=== PATIENT | female | born 1965 | race African-American/Black ===

== ENCOUNTER 2018-07-25 15:18 | Inpatient (IN) | payer MEDICARE, MEDICAID ==
[~2018-07-25] VITALS: Ht 160 cm; Wt 75.7 kg
[2018-07-25] MEDS ORDERED: MAGNESIUM HYDROXIDE 30 ML UDC PO PRN (15:30)
[2018-07-25] MEDS ORDERED: ZOLPIDEM TARTRATE 5 MG TABLET PO PRN (15:30)
[2018-07-25] MEDS ORDERED: MAG HYDROX/AL HYDROX/SIMETH 30 ML UDC PO PRN (15:30)
[2018-07-25] MEDS ORDERED: ACETAMINOPHEN 325 MG TABLET PO PRN (15:30)
[2018-07-25 15:38] VITALS: BP 141/64
[2018-07-25] MEDS ORDERED: ATOR10TA PO (15:44)
[2018-07-25] MEDS ORDERED: DIVA-76 PO (15:44)
[2018-07-25] MEDS ORDERED: LITH150C PO (15:44)
[2018-07-25] MEDS ORDERED: FLUP25VI4 IM (15:44)
[2018-07-25] MEDS ORDERED: BENZ2TAB7 PO (15:44)
[2018-07-25 16:00] VITALS: BP 141/64
--- NOTE | 2018-07-25 16:35 | NUR ---
Admitted a 53 years old female on 5150 for GD. Per hold, pt. called 911, screaming about someone trying to kill her. Brothers reported that pt. is non compliant on meds and unable to provide a viable self care plan. Pt. arrived in the unit via ambulance and transported via a gurney. V/S taken, contraband done, pt. refused to sign the admission papers and refused for skin assessment, pt. is partially cooperative and feels sleepy. Pt. came from [facility], alert/ oriented x3, ambulatory and with poor hygiene. Dr. Spivey was notified by the charge for the admission and logistics system engineer Josesito North (BOSTON CUTTER) made aware of the admission and told to reconcile meds. Will continue to monitor for safety. Addendum: 07/26/18 at 0758 by YFN APODACA RN PT. REFUSED FOR MRSA SWAB.
[2018-07-25 20:00] VITALS: BP 145/57
--- NOTE | 2018-07-26 01:25 | NUR ---
GPS/RN PATIENT IS SLEEPING AT THIS TIME, CALM AND COMFORTABLE, NO SIGNS OF DISTRESS NOTED, WILL CONTINUE TO MONITOR.
--- NOTE | 2018-07-26 06:10 | NUR ---
GPS/RN PATIENT IS AWAKE AT THIS TIME, CALM AND COMFORTABLE, NO DISTRESS NOTED, ALL NEEDS ATTENDED AT THIS TIME, WILL CONTINUE TO MONITOR.
[2018-07-26 08:00] VITALS: BP 118/74
--- NOTE | 2018-07-26 09:30 | NUR ---
SW contacted pts brother Win [phone] and left voicemail for call back.
[2018-07-26 09:32] LABS: ALBUMIN 2.9 g/dL (3.4-5.0); BILIRUBIN,TOTAL 0.4 mg/dL (0.2-1.0); CALCIUM, SERUM 8.6 mg/dL (8.5-10.1); CREATININE 0.9 mg/dL (0.6-1.3); POTASSIUM 3.9 mmol/L (3.5-5.1); TOTAL PROTEIN, SERUM 7.1 g/dL (6.4-8.2)
--- NOTE | 2018-07-26 10:05 | NUR ---
SW contacted pts son Unruly [phone] who stated, "Let me save you some time, I cannot help her, I have a restraining order against her. She's been to like 200 hospitals. Please don;t call me again." Son also stated that he did not know if pt was homeless.
--- NOTE | 2018-07-26 11:19 | NUR ---
INITIAL DISCHARGE PLAN: Patient has no family support and is homeless. Pt will need SNF placement. SW will help form a safe and proper discharge in collaboration with MD.
[2018-07-26] MEDS ORDERED: DEXTROSE 50%-WATER 50 ML DISP.SYRIN IV PRN (12:30)
--- NOTE | 2018-07-26 12:54 | NUR ---
SW received a call from pts brothkelly Walden [phone] stating pt needs locked SNF placement. SW informed him that once pt is stable she will refer her to a locked SNF. Brother agreed.
[2018-07-26] MEDS: DIVALPROEX SODIUM 125 MG CAP.SPRINK PO SCH ×2 (13:02→21:53)
[2018-07-26] MEDS: BENZTROPINE MESYLATE (1 MG) 1 MG TABLET PO SCH ×2 (13:02→17:16)
[2018-07-26] MEDS: risperiDONE-M 0.5 MG TAB.RAPDIS PO SCH ×2 (13:02→17:16)
[2018-07-26 16:00] VITALS: BP 113/67
[2018-07-26] MEDS: LITHIUM CARBONATE (300 MG CAP) 300 MG CAPSULE PO SCH (17:16)
[2018-07-26] MEDS: INSULIN REGULAR, HUMAN 100 UNIT/ML 3 ML VIAL SQ PRN ×2 (17:36→21:54)
[2018-07-26] MEDS: ATORVASTATIN 10 MG TABLET PO SCH (19:21)
[2018-07-26] MEDS: BLOOD SUGAR DIAGNOSTIC 1 EACH STRIP IN SCH ×2 (19:22→21:53)
--- NOTE | 2018-07-26 19:40 | NUR ---
initial rn notes: received pt in the room, sleeping, arouses to tactile stimuli, appears calm and comfortable. respiration even and unlabored. pt denies any pain or discomfort. pt a/o x2, ambulatory, well groomed, med compliant, with bathroom privileges. denies any si/hi. safety precautions for fall initiated, side rails up for safety, bed brakes engaged, will continue to monitor pt [id number] for safety and any changes in behavior
[2018-07-26 20:00] VITALS: BP 108/71
--- NOTE | 2018-07-26 22:00 | NUR ---
rn notes: skin assessment performed, no skin issues noted at this time, pt currently eating snack tuna sandwich and juice.
[2018-07-27] MEDS: BLOOD SUGAR DIAGNOSTIC 1 EACH STRIP IN SCH ×4 (07:30→21:08)
[2018-07-27 08:00] VITALS: BP 116/79
[2018-07-27] MEDS: DIVALPROEX SODIUM 125 MG CAP.SPRINK PO SCH ×3 (08:54→21:08)
[2018-07-27] MEDS: risperiDONE-M 0.5 MG TAB.RAPDIS PO SCH ×4 (08:54→16:43)
[2018-07-27] MEDS: BENZTROPINE MESYLATE (1 MG) 1 MG TABLET PO SCH ×4 (08:54→16:43)
[2018-07-27] MEDS: LITHIUM CARBONATE (300 MG CAP) 300 MG CAPSULE PO SCH ×3 (08:54→12:55)
[2018-07-27] MEDS ORDERED: OLANZAPINE 10 MG VIAL IM ONE (11:30)
--- NOTE | 2018-07-27 12:57 | NUR ---
GPS/RN PT AGREED TO TAKE ALL AM MEDS AT THIS TIME. DR HURTADO MADE AWARE
[2018-07-27] MEDS: LORAZEPAM 0.5 MG TABLET PO PRN (14:35)
[2018-07-27 16:00] VITALS: BP 134/71
[2018-07-27] MEDS: LITHIUM CARBONATE 150 MG CAPSULE PO SCH (16:43)
[2018-07-27] MEDS: ATORVASTATIN 10 MG TABLET PO SCH (18:13)
[2018-07-27 20:00] VITALS: BP 142/86
[2018-07-27] MEDS: INSULIN REGULAR, HUMAN 100 UNIT/ML 3 ML VIAL SQ PRN (20:38)
[2018-07-28] MEDS: BLOOD SUGAR DIAGNOSTIC 1 EACH STRIP IN SCH ×4 (07:30→21:55)
[2018-07-28 08:00] VITALS: BP 118/77
[2018-07-28] MEDS: BENZTROPINE MESYLATE (1 MG) 1 MG TABLET PO SCH ×2 (08:46→17:47)
[2018-07-28] MEDS: LITHIUM CARBONATE 150 MG CAPSULE PO SCH ×2 (08:46→17:48)
[2018-07-28] MEDS: DIVALPROEX SODIUM 125 MG CAP.SPRINK PO SCH ×2 (08:46→20:28)
[2018-07-28] MEDS: risperiDONE-M 0.5 MG TAB.RAPDIS PO SCH ×2 (08:46→17:48)
[2018-07-28] MEDS: INSULIN REGULAR, HUMAN 100 UNIT/ML 3 ML VIAL SQ PRN ×2 (11:52→21:56)
[2018-07-28 16:00] VITALS: BP 105/77
--- NOTE | 2018-07-28 17:16 | NUR ---
GPS/RN PT REFUSED ACCUCHECK OFFERED X3. CHARGE NURSE WILIAN OFFERED WELL. PT STILL REFUSED.
[2018-07-28] MEDS: ATORVASTATIN 10 MG TABLET PO SCH (18:00)
[2018-07-28 20:14] VITALS: BP 108/63
--- NOTE | 2018-07-29 06:32 | NUR ---
Refused weekly body skin assessment. Offered x3 and still refused.
[2018-07-29] MEDS: BLOOD SUGAR DIAGNOSTIC 1 EACH STRIP IN SCH ×4 (07:30→21:46)
--- NOTE | 2018-07-29 07:41 | NUR ---
RN NOTES PT REFUSED AM ACCU CHEK. WILL CONTINUE TO FOLLOW UP.
[2018-07-29 08:00] VITALS: BP 106/76
--- NOTE | 2018-07-29 08:00 | NUR ---
RN NOTES PT REFUSED SECOND ATTEMPT AT LAB DRAW.
[2018-07-29] MEDS: risperiDONE-M 0.5 MG TAB.RAPDIS PO SCH ×2 (08:43→17:03)
[2018-07-29] MEDS: BENZTROPINE MESYLATE (1 MG) 1 MG TABLET PO SCH ×2 (08:43→17:02)
[2018-07-29] MEDS: METFORMIN 500 MG TABLET PO SCH (08:43)
[2018-07-29] MEDS: LITHIUM CARBONATE 150 MG CAPSULE PO SCH ×2 (08:43→17:02)
[2018-07-29] MEDS: DIVALPROEX SODIUM 125 MG CAP.SPRINK PO SCH ×2 (08:43→21:16)
[2018-07-29] MEDS: LORAZEPAM 0.5 MG TABLET PO PRN (10:46)
--- NOTE | 2018-07-29 12:51 | NUR ---
RN NOTES PT REFUSED 1200 ACCUCHEK.
[2018-07-29 16:00] VITALS: BP 100/60
[2018-07-29] MEDS: ATORVASTATIN 10 MG TABLET PO SCH (17:02)
[2018-07-29 20:00] VITALS: BP 107/56
[2018-07-29 20:07] VITALS: BP 107/56
--- NOTE | 2018-07-29 22:00 | NUR ---
GPS RN NOTES REFUSED BLOOD SUGAR CHECK
[2018-07-30] MEDS: BLOOD SUGAR DIAGNOSTIC 1 EACH STRIP IN SCH ×4 (07:30→22:00)
[2018-07-30 08:00] VITALS: BP 100/73
[2018-07-30] MEDS: METFORMIN 500 MG TABLET PO SCH (08:34)
[2018-07-30] MEDS: risperiDONE-M 0.5 MG TAB.RAPDIS PO SCH ×2 (08:35→17:54)
[2018-07-30] MEDS: BENZTROPINE MESYLATE (1 MG) 1 MG TABLET PO SCH ×2 (08:35→17:53)
[2018-07-30] MEDS: DIVALPROEX SODIUM 125 MG CAP.SPRINK PO SCH ×2 (08:35→21:00)
[2018-07-30] MEDS: LITHIUM CARBONATE 150 MG CAPSULE PO SCH ×2 (08:35→17:53)
--- NOTE | 2018-07-30 10:11 | NUR ---
DISCHARGE PLANNING: SW spoke with pt regarding her discharge plan pt informed SW that she lives at a board and care and provided SW with the address [address] [facility] [address]. Pt stated she lives in the back house, Pt stated she did not know the number of the landlord to confirm residence. At this time SW cannot confirm pt lives at that residence and per conversation with pts brother he stated pt is homeless and needs placement. Per psychiatric hold, pt is also homeless.
[2018-07-30 15:58] VITALS: BP 104/75
[2018-07-30] MEDS: ATORVASTATIN 10 MG TABLET PO SCH (17:53)
[2018-07-30 19:48] VITALS: BP 116/73
[2018-07-30 19:59] VITALS: BP 116/73
--- NOTE | 2018-07-30 23:00 | NUR ---
RN NOTES PT REFUSING HS ACCUCHECK ON MULTIPLE OCCASIONS DESPITE EDUCATION ON RISKS/BENEFITS. PT KEEPS SAYING "NOT NOW LATER, TOMORROW"
[2018-07-31] MEDS: BLOOD SUGAR DIAGNOSTIC 1 EACH STRIP IN SCH ×4 (07:30→21:20)
[2018-07-31 08:00] VITALS: BP 141/92
[2018-07-31] MEDS: DIVALPROEX SODIUM 125 MG CAP.SPRINK PO SCH ×2 (08:54→21:08)
[2018-07-31] MEDS: METFORMIN 500 MG TABLET PO SCH (08:55)
[2018-07-31] MEDS: LITHIUM CARBONATE 150 MG CAPSULE PO SCH ×2 (08:55→16:39)
[2018-07-31] MEDS: BENZTROPINE MESYLATE (1 MG) 1 MG TABLET PO SCH ×2 (08:55→16:39)
[2018-07-31] MEDS: risperiDONE-M 0.5 MG TAB.RAPDIS PO SCH ×2 (08:56→16:39)
--- NOTE | 2018-07-31 15:01 | NUR ---
SNF REFERRALS: SW faxed SNF referrals to the following locked facilities. [facility] Attn: Linda Address: [address] [place] [address] [facility] Attn: Zully Address: [address] [place] [address] [facility] Attn: Hung Address: [address] [place] [address]
--- NOTE | 2018-07-31 15:44 | NUR ---
Social Work received phone call from German at [facility] Address: [place] [address] confirming he has received intake referral packet and will review pt for possible placement.
--- NOTE | 2018-07-31 15:52 | NUR ---
GPS/RN-NOTES PATIENT REFUSED ACCU-CHECK AND LAB DRAWS TODAY DESPITE EXPLANATION RISK AND BENEFITS. PATIENT STATED" NO,NO ,NO". LAB STAFF DID ATTEMPT X3 TODAY. DR. SALAZAR WAS MADE AWARE OF THE REFUSAL.
[2018-07-31 16:00] VITALS: BP 122/71
--- NOTE | 2018-07-31 16:12 | NUR ---
Social Work received phone call from [facility] field care coordinator Ondina Address: [address] [facility], [place] [address] . media marketing coordinator informed social security specialist that pt has been accepted. Social work will notify MD and follow up prior to discharge.
[2018-07-31] MEDS: ATORVASTATIN 10 MG TABLET PO SCH (17:09)
[2018-07-31 19:56] VITALS: BP 102/46
--- NOTE | 2018-07-31 21:12 | NUR ---
AMBIEN 5 MG TAB PO GIVEN FOR SLEEP.
--- NOTE | 2018-07-31 21:21 | NUR ---
REFUSED ACCUCHECK, X2, EXPLAINED BENEFITS, STILL REFUSED.
--- NOTE | 2018-08-01 06:49 | NUR ---
C/O GASTRIC UPSET, MAALOX SUSPENSION 30 ML PO GIVEN.
[2018-08-01] MEDS: BLOOD SUGAR DIAGNOSTIC 1 EACH STRIP IN SCH ×4 (07:28→21:13)
[2018-08-01 08:00] VITALS: BP 100/60
[2018-08-01] MEDS: BENZTROPINE MESYLATE (1 MG) 1 MG TABLET PO SCH ×2 (08:14→16:11)
[2018-08-01] MEDS: LITHIUM CARBONATE 150 MG CAPSULE PO SCH ×3 (08:14→16:12)
[2018-08-01] MEDS: DIVALPROEX SODIUM 125 MG CAP.SPRINK PO SCH ×3 (08:14→16:11)
[2018-08-01] MEDS: METFORMIN 500 MG TABLET PO SCH (08:14)
[2018-08-01] MEDS: risperiDONE-M 0.5 MG TAB.RAPDIS PO SCH ×2 (08:15→16:11)
--- NOTE | 2018-08-01 12:15 | NUR ---
DISCHARGE PLANNING: Social work discussed with , pt has a discharge date of Sunday. rubber worker contacted [facility] critical care clinical nurse specialist Ondina Address: [address] [facility], [place] [address] and informed Odnina of discharge date and time. Social work will follow up with transportation.
--- NOTE | 2018-08-01 12:47 | NUR ---
SW contacted pts brother Win [phone] and left voicemail for call back regarding pts discharge plan.
[2018-08-01 16:00] VITALS: BP 103/71
[2018-08-01] MEDS: ATORVASTATIN 10 MG TABLET PO SCH (17:06)
--- NOTE | 2018-08-01 19:19 | NUR ---
FAMILY VISITS AT THE BEDSIDE. NO COMPLAINTS MADE AT THIS TIME.
[2018-08-01 20:00] VITALS: BP 109/67
--- NOTE | 2018-08-01 21:14 | NUR ---
REFUSED ACCHECK TO BE DONE.
[2018-08-02] MEDS: BLOOD SUGAR DIAGNOSTIC 1 EACH STRIP IN SCH ×4 (07:30→21:37)
[2018-08-02 08:00] VITALS: BP 118/73
[2018-08-02] MEDS: risperiDONE-M 0.5 MG TAB.RAPDIS PO SCH ×2 (08:34→17:12)
[2018-08-02] MEDS: LITHIUM CARBONATE 150 MG CAPSULE PO SCH ×3 (08:34→17:12)
[2018-08-02] MEDS: BENZTROPINE MESYLATE (1 MG) 1 MG TABLET PO SCH ×2 (08:34→17:12)
[2018-08-02] MEDS: DIVALPROEX SODIUM 125 MG CAP.SPRINK PO SCH ×3 (08:34→17:12)
[2018-08-02] MEDS: METFORMIN 500 MG TABLET PO SCH (08:34)
[2018-08-02 16:00] VITALS: BP 110/69
[2018-08-02] MEDS: ATORVASTATIN 10 MG TABLET PO SCH (17:12)
[2018-08-02 20:00] VITALS: BP 107/61
--- NOTE | 2018-08-02 21:37 | NUR ---
REFUSED ACCUCHECK TONIGHT.
[2018-08-03] MEDS: BLOOD SUGAR DIAGNOSTIC 1 EACH STRIP IN SCH ×2 (07:30→11:50)
[2018-08-03 08:00] VITALS: BP 115/76
--- NOTE | 2018-08-03 08:19 | NUR ---
DR. FRANK GAVE AN ORDER TO D/C HOLD AND D/C TO [facility], TO CONTINUE SAME MEDS INCLUDING PRN AND TO FOLLOW UP WITH PSYCH AND MEDICAL DOCTORS. ÁNGEL (MIXING MACHINE TENDER CORK GASKET FROM THE FACILITY) CONFIRMED THAT THEY WILL ACCEPT THE PT. TODAY. Addendum: 08/03/18 at 0823 by YFN APODACA RN PTS. BROTHER HAS BEEN CONTACTED AND LEFT A MESSAGE.
[2018-08-03] MEDS: METFORMIN 500 MG TABLET PO SCH (08:46)
[2018-08-03] MEDS: BENZTROPINE MESYLATE (1 MG) 1 MG TABLET PO SCH (08:46)
[2018-08-03] MEDS: risperiDONE-M 0.5 MG TAB.RAPDIS PO SCH (08:46)
[2018-08-03] MEDS: DIVALPROEX SODIUM 125 MG CAP.SPRINK PO SCH ×2 (08:46→12:18)
[2018-08-03] MEDS: LITHIUM CARBONATE 150 MG CAPSULE PO SCH ×2 (08:46→12:18)
--- NOTE | 2018-08-03 11:57 | NUR ---
GPS/RN PT IS AMBULATORY VSS NO ACUTE DISTRESS NO SI/HI AT THE TIME OF D/C. REFUSED SKIN ASSESSMENT/SIGN THE PAPERWORK ON D/C. PROPERTY RETURNED .CALLED FOR REPORT TO [facility], [place] [phone]. TUNDE/ ADMITTING NURSE WAS BUSY, GPS PHONE LEFT FOR CALL BACK . THE FACILITY WILL CALL BACK FOR REPORT PER NIURKA/ JOHN BRANCH
--- NOTE | 2018-08-03 12:40 | NUR ---
GPS/RN REPORT GIVEN TO CHARGE NURSE ÁNGEL AT [facility] [phone]
[2018-08-04] MEDS ORDERED: RISP0.253 SL (18:14)
[2018-08-04] MEDS ORDERED: ZOLP5TAB2 PO (18:14)
[2018-08-04] MEDS ORDERED: METF-440 PO (18:14)
[2018-08-04] MEDS ORDERED: LORA-259 PO (18:14)
[2018-08-04] MEDS ORDERED: LITH150C PO (18:14)
[2018-08-04] MEDS ORDERED: BENZ1TAB7 PO (18:14)
[2018-08-04] MEDS ORDERED: DIVA250T4 PO (18:14)
[2018-08-04] MEDS ORDERED: BLOO-668 IN (18:14)
[2018-08-04] MEDS ORDERED: INSU100V3 SQ (18:14)
--- NOTE | 2018-08-05 08:38 | NUR ---
DISCHARGE NOTE: Pt will be discharged on Friday August 03, 2018 at 12:30am via [id number] trip# [id number]. Pt will be discharged to [facility]: Address: [address] [place] [address], . Pts brother (Win [phone]) has been contacted and voicemail has been left. Pts mood is euthymic with congruent affect. Pt denied suicidal/homicidal ideation and denied visual/auditory hallucinations. Pt was provided with homeless resources pertaining to clinics, shelters and resources. Psychiatrist: Patric Maxwell MD . Address: [address] [place] [address] [address], [place] [address].Oral And Maxillofacial Pathologist: [facility]: Dr. Miguel Angel Mendez MD. Address: [address] [place] [address]. The multidisciplinary exitcare form was done, printed, signed, and given to the patient.
== END 2018-08-03 13:10 | DRG 885 ==
LOC: GPS 15:18
PROVIDERS: ADMIT Psychiatry & Neurology Psychiatry; ATTEND Family Medicine
DX: F25.0 Schizoaffective disorder, bipolar type (principal); E11.65 Type 2 diabetes mellitus with hyperglycemia; F29 Unspecified psychosis not due to a substance or known physiological condition; F41.9 Anxiety disorder, unspecified; E78.5 Hyperlipidemia, unspecified; Z73.6 Limitation of activities due to disability; Z79.84 Long term (current) use of oral hypoglycemic drugs
CPT/HCPCS: 36415; 80053-TC; 80061-TC; 80164-TC; 82962-TC; 87081-TC; J1815; J3490

== ENCOUNTER 2018-08-04 17:07 | Inpatient (IN) | payer MEDICARE, MEDICAID ==
[~2018-08-04] VITALS: Ht 167.6 cm; Wt 90.7 kg
[~2018-08-04 17:07] MED LIST: ATOR10TA PO
--- NOTE | 2018-08-04 17:29 | NUR ---
JOSIANE, FROM SNF, C/O INCREASED AGITATION TOWARDS STAFF AND CAREGIVER, ON 5150 HOLD, TO ER BED 4, HOOKED TO MONITOR, PROVIDED W WARM BLANKET, AWAITING MD MERRITT.
--- NOTE | 2018-08-04 17:40 | NUR ---
PA DEGRASSE AT BEDSIDE
[2018-08-04] MEDS ORDERED: LORAZEPAM INJ 2 MG/ML VIAL ONE (17:52)
[2018-08-04] MEDS ORDERED: OLANZAPINE 10 MG VIAL IM ONE ×2 (17:52→18:00)
[2018-08-04 17:58] LABS: BASOPHILS % (AUTO) 0.7 % (0.0-2.0); HEMATOCRIT 40 % (33-45); HEMOGLOBIN 13.6 g/dL (11.5-14.8); LYMPHOCYTES # (AUTO) 2.1 /CMM (0.8-4.8); LYMPHOCYTES % (AUTO) 29.3 % (20.0-44.0); MEAN CORPUSCULAR HGB CONC 34 g/dl (31.0-36.0); MEAN CORPUSCULAR VOLUME 91 fL (82-100); MONOCYTES # (AUTO) 0.7 /CMM (0.1-1.30); MONOCYTES % (AUTO) 9.5 % (2.0-12.0); NEUTROPHILS # (AUTO) 4.2 /CMM (1.8-8.9); NEUTROPHILS % (AUTO) 58.5 % (43.0-81.0); PLATELET COUNT (AUTO) 215 /CMM (150-450); WHITE BLOOD COUNT (AUTO) 7.1 K/uL (4.3-11.0)
[2018-08-04] MEDS ORDERED: LORAZEPAM INJ 2 MG/ML VIAL IM ONE (18:00)
[2018-08-04 18:04] LABS: CALCIUM, SERUM 9.3 mg/dL (8.5-10.1); CARBON DIOXIDE 33 mmol/L (21-32); CHLORIDE 103 mmol/L (98-107); CREATININE 0.7 mg/dL (0.6-1.3); GLUCOSE 131 mg/dL (74-106); SODIUM SERUM 139 mmol/L (136-145); UREA NITROGEN, BLOOD 12 mg/dL (7-18)
--- NOTE | 2018-08-04 18:08 | NUR ---
HOUSE SUP CALLED FOR GPS BED
--- NOTE | 2018-08-04 18:13 | NUR ---
GPS BED 211-A GIVEN
[2018-08-04] MEDS ORDERED: LITH150C PO (18:14)
[2018-08-04] MEDS ORDERED: LORA-259 PO (18:14)
[2018-08-04] MEDS ORDERED: DIVA250T4 PO (18:14)
[2018-08-04] MEDS ORDERED: BLOO-668 IN (18:14)
[2018-08-04] MEDS ORDERED: BENZ1TAB7 PO (18:14)
[2018-08-04] MEDS ORDERED: RISP0.253 SL (18:14)
[2018-08-04] MEDS ORDERED: ZOLP5TAB2 PO (18:14)
[2018-08-04] MEDS ORDERED: METF-440 PO (18:14)
[2018-08-04] MEDS ORDERED: INSU100V3 SQ (18:14)
[2018-08-04 18:17] LABS: ALANINE AMINOTRANSFERASE 18 U/L (12-78); ALBUMIN 3.3 g/dL (3.4-5.0); ALKALINE PHOSPHATASE 84 U/L (46-116); ASPARTATE AMINOTRANSFERASE 14 U/L (15-37); BILIRUBIN,DIRECT 0.1 mg/dL (0.0-0.2); BILIRUBIN,TOTAL 0.2 mg/dL (0.2-1.0); TOTAL PROTEIN, SERUM 8.2 g/dL (6.4-8.2)
[2018-08-04 18:18] LABS: ACETAMINOPHEN < 10 ug/ml (10-30); ALCOHOL, BLOOD < 3 mg/dL (0-0)
[2018-08-04 18:28] LABS: APPEARANCE,URINE Clear (CLEAR); BILIRUBIN,URINE Negative (NEGATIVE); BLOOD, URINE Negative Ery/uL (NEGATIVE); COLOR,URINE Yellow (YELLOW); KETONES,URINE Negative (NEGATIVE); LEUKOCYTE ESTERASE ,URINE Trace (NEGATIVE); NITRITE, URINE Negative (NEGATIVE); PROTEIN,URINE Negative (NEGATIVE); UGLUCOSE Negative (NEGATIVE); UROBILINOGEN,URINE 0.2 EU/dL (0.2)
--- NOTE | 2018-08-04 18:35 | NUR ---
SITTER AT BESIDE
--- NOTE | 2018-08-04 18:40 | NUR ---
REPORT GIVEN TO SKYLAR OF [facility]
[2018-08-04 18:41] LABS: BACTERIA,URINE None seen /HPF (None Seen); RBC,URINE 0-2 /HPF (0-2); SQUAMOUS EPITHELIAL CELL,UR Rare /HPF (None Seen); WBC,URINE 0-2 /HPF (0-3)
--- NOTE | 2018-08-04 18:48 | NUR ---
CALLED CROSS ENTERPRISE INTEGRATOR CLINICIAN FOR EVALUATION
--- NOTE | 2018-08-04 18:50 | NUR ---
CALLED AUTO WASHER CLINICIAN TO CANCEL THE EVALUATION
[2018-08-04] MEDS ORDERED: ZOLPIDEM TARTRATE 5 MG TABLET PO PRN ×2 (19:00→20:30)
[2018-08-04 19:10] VITALS: BP 136/81
--- NOTE | 2018-08-04 19:10 | NUR ---
GPS ADMISSION NOTE, RECEIVED PATIENT FROM [facility]. PATIENT ARRIVED ON THIS UNIT AT 1910 VIA STRETCHER WITH 2 EMT ESCORTS. PATIENT ADMITTED ON A 5150 HOLD FOR GD AND DTO. PER HOLD PATIENT HAS BEEN VERBALLY AND PHYSICALLY THREATENING TOWARD STAFF AND OTHER RESIDENTS. PATIENT HAS BEEN REFUSING MEDICATIONS AND HAS BEEN TRYING TO LEAVE FACILITY. PATIENT IS UNABLE TO GIVE VIABLE PLAN FOR SELF CARE. THE 5150 WAS REVIEWED AND THE DOCUMENTATION IN THE 5150 HOLD APPEARS TO REFLECT THE PRESENTATION OF THE PATIENT. UPON FACE TO FACE ASSESSMENT PATIENT IS CURRENTLY LYING IN BED AWAKE, HAS NO S/S OR COMPLAINTS OF PAIN. PATIENT IS DISPLAYING NO S/S OF APPARENT DISTRESS. PATIENT BREATHING IS UNLABORED WITH EQUAL RISE AND FALL OF THE CHEST. PATIENT IS ALERT AND ORIENTATED X 2 ON ROOM AIR. PATIENT ASSISTED WITH TURING AND REPOSITIONING Q2HR AND PRN FOR COMFORT AND CIRCULATION. PATIENT HAS NO NEEDS AT THIS TIME. PATIENT IS NOTED TO BEING WITHDRAWN, DEPRESSED, DISHEVELED, DISORGANIZED, CONFUSED, COOPERATIVE, AND NEEDS REDIRECTION. PATIENT DENIES SUICIDE IDEATIONS AND HOMICIDAL IDEATIONS AT THIS TIME. PATIENT IS UNDER THE PSYCHIATRIC CARE OF DR. FRANK AND THE MEDICAL CARE OF DR SALAZAR. PATIENT BELONGINGS WERE INVENTORIED AND CHECKED FOR CONTRABAND. ALL CONTRABAND REMOVED AND STORED IN PATIENT HALLWAY LOCKER. PATIENT ADVANCED DIRECTIVES PREFERENCE, IMMUNIZATIONS QUESTIONER, NECESSARY PAPERWORK COMPLETED, BUT PATIENT REFUSED SKIN ASSESSMENT. PATIENT ORIENTATED TO ROOM, FLOOR, AND STAFF WITH ALL QUESTIONS ANSWERED. PATIENT EDUCATED ON THE USE OF THE CALL KATE. PATIENT BED SIDE RAILS ARE UP X 2 FOR SAFETY. PATIENT BED IS LOCKED, LOW AND I WILL CONTINUE TO MONITOR THIS PATIENT Q 15 MIN WITH THE HELP OF STAFF TO MAINTAIN SAFETY.
[2018-08-04] MEDS ORDERED: DEXTROSE 50%-WATER 50 ML DISP.SYRIN IV PRN (19:30)
[2018-08-04 19:32] VITALS: BP 136/81
--- NOTE | 2018-08-04 20:06 | NUR ---
GPS RN NOTE, PATIENT HAS A COMPLAINT OF OF FEELING ANXIOUS AND IS REQUESTING ATIVAN AT THIS TIME. PATIENT VITAL SIGNS ARE STABLE. GAVE ATIVAN 0.5MG PO Q6HR PRN ORDERED. WILL REASSESS FOR ANXIETY AND I WILL CONTINUE TO MONITOR THIS PATIENT. Addendum: 08/04/18 at 2228 by ANTONIO SMITH RN DISREGARD WRONG PATIENT.
[2018-08-04] MEDS ORDERED: LORAZEPAM 0.5 MG TABLET PO PRN (20:30)
[2018-08-04] MEDS ORDERED: ACETAMINOPHEN 325 MG TABLET PO PRN (20:30)
[2018-08-04] MEDS ORDERED: MAG HYDROX/AL HYDROX/SIMETH 30 ML UDC PO PRN (20:30)
[2018-08-04] MEDS ORDERED: MAGNESIUM HYDROXIDE 30 ML UDC PO PRN (20:30)
--- NOTE | 2018-08-04 21:00 | NUR ---
GPS RN NOTE, PATIENT REFUSED TO HAVE A SKIN ASSESSMENT AND PICTURES TAKEN TODAY. OFFERED TO DO SKIN ASSESSMENT THREE TIMES BUT STILL PATIENT REFUSED. EDUCATED THIS PATIENT ON HOSPITAL POLICY ON DOING SKIN ASSESSMENT AND TAKING PICTURES. WILL CONTINUE TO MONITOR THIS PATIENT.
[2018-08-04] MEDS: ATORVASTATIN 10 MG TABLET PO SCH (21:51)
[2018-08-04] MEDS ORDERED: BLOOD SUGAR DIAGNOSTIC 1 EACH STRIP IN SCH (22:00)
[2018-08-04] MEDS: BLOOD SUGAR DIAGNOSTIC 1 EACH STRIP IN SCH (22:08)
--- NOTE | 2018-08-04 22:08 | NUR ---
GPS RN NOTE, PERFORMED ACCU-CHECK ON PATIENT WITH A BLOOD SUGAR RESULT OF 192. GAVE 2 UNITS OF REGULAR INSULIN PER SLIDING SCALE. ALSO GAVE TWO JUICES FOR SNACK. WILL CONTINUE TO MONITOR THIS PATIENT.
[2018-08-04] MEDS: INSULIN REGULAR, HUMAN 100 UNIT/ML 3 ML VIAL SQ PRN (22:11)
[2018-08-05] MEDS: BLOOD SUGAR DIAGNOSTIC 1 EACH STRIP IN SCH ×4 (07:30→21:27)
[2018-08-05] MEDS: METFORMIN 500 MG TABLET PO SCH (08:35)
[2018-08-05 08:37] VITALS: BP 134/91
[2018-08-05] MEDS ORDERED: DIVALPROEX SODIUM 250 MG TABLET.DR PO SCH (09:00)
--- NOTE | 2018-08-05 12:51 | NUR ---
Psychosocial Note: I, Gifty Anand CHRONIC DISEASE EPIDEMIOLOGIST, attest to the patients previous psychosocial information dated on 07/26/18. Update On Events leading to Admission and Discharge Plan: Pt has returned to the geropsychiatric unit of the hospital within one one day of her previous discharge date (08/03/18) from [facility]. Per hold, pt had been admitted to SNF for about one day when she had become increasingly verbally and physically threatening towards caregiver and other residents. Per hold, pt attempted to elope from crisis evaluation. The pt appeared to be oriented x4 (time, place, self and situation). The pt appeared to be in a dysphoric mood and presented as irritable and agitated. Pt is upset that she was not placed in a board and care, social work informed pt due to lack of financial proof placement could not be placed. Pt appeared to be ambulatory. Pt appeared to be well groomed and appropriately dressed. SW will work with the pt, the pts family and the MD regarding appropriate discharge planning. SW will form a safe and proper discharge.
[2018-08-05] MEDS: DIVALPROEX SODIUM 250 MG TABLET.DR PO SCH ×3 (13:00→17:27)
[2018-08-05] MEDS: LITHIUM CARBONATE 150 MG CAPSULE PO SCH ×3 (13:00→17:27)
--- NOTE | 2018-08-05 13:10 | NUR ---
GPS RN NOTE: NEW ORDER OF DEPAKOTE AND LITHIUM RECEIVED, CONSENT COMPLETED, FIRST DOSE OF DEPAKOTE AND LITHIUM GIVEN AT 1:10PM. WILL CONTINUE TO MONITOR L50IFDS FOR SAFETY
[2018-08-05] MEDS: risperiDONE 1 MG TABLET PO SCH ×2 (13:11→21:16)
[2018-08-05] MEDS ORDERED: LORAZEPAM 0.5 MG TABLET PO PRN (14:30)
[2018-08-05 16:00] VITALS: BP 113/82
[2018-08-05] MEDS: BENZTROPINE MESYLATE (1 MG) 1 MG TABLET PO SCH (17:27)
[2018-08-05 19:45] VITALS: BP 103/69
[2018-08-05] MEDS: ATORVASTATIN 10 MG TABLET PO SCH (21:16)
--- NOTE | 2018-08-05 21:27 | NUR ---
GPS-NOTES: PATIENT REFUSED TO HAVE HER BLOOD SUGAR CHECK. DESPITE EDUCATION ON RISKS AND BENEFITS. OFFERED X3, PATIENT STRONGLY REFUSED.
[2018-08-06] MEDS: BLOOD SUGAR DIAGNOSTIC 1 EACH STRIP IN SCH ×4 (07:30→21:17)
[2018-08-06 07:58] VITALS: BP 104/66
[2018-08-06] MEDS: DIVALPROEX SODIUM 250 MG TABLET.DR PO SCH ×3 (09:24→16:17)
[2018-08-06] MEDS: METFORMIN 500 MG TABLET PO SCH (09:25)
[2018-08-06] MEDS: risperiDONE 1 MG TABLET PO SCH ×2 (09:25→21:10)
[2018-08-06] MEDS: BENZTROPINE MESYLATE (1 MG) 1 MG TABLET PO SCH ×2 (09:25→16:17)
[2018-08-06] MEDS: LITHIUM CARBONATE 150 MG CAPSULE PO SCH ×3 (09:25→16:17)
--- NOTE | 2018-08-06 12:01 | NUR ---
GPS/RN-NOTES PATIENT REFUSED ACCU CHECK IN AM AND 12NOON DESPITE EXPLANATIONS RISK AND BENEFITS. PATIENT STATED" NO,NO,NO LEAVE ME ALONE". ATTEMPTED X3 IN AM AND AT THIS TIME STILL REFUSED.
--- NOTE | 2018-08-06 14:35 | NUR ---
DISCHARGE PLANNING/SUPPORTIVE COUNSELING: SW discussed pts discharge plan; pt wishes to be discharged to a board and care and stated she wishes to only pay $500/month. SW explained that she cannot be placed for $500 and asked what her monthly income was, pt stated she receives $950/ month from [employer] and stated her budged was between $700-$800/month. SW stated that she would attempt to work with pts budget and find an affordable board and care of independent facility. Pt agreed. SW also addressed pts irritability and labile mood and encouraged medication compliance and milieu treatment. Pt stated she is taking her medication and will participate in groups.
[2018-08-06 15:09] VITALS: BP 106/66
--- NOTE | 2018-08-06 17:08 | NUR ---
GPS/RN-NOTES PATIENT SLEEPING IN BED .NO ACUTE DISTRESS NOTED. ENDORSE TO CHARGE NURSE FOR CONTINUITY OF CARE. Addendum: 08/06/18 at 1712 by AUSTIN MENDOZA RN IN ADDITION TO MY ABOVE NOTES, PATIENT REFUSED ACCU CHECK.
[2018-08-06 19:34] VITALS: BP 105/69
--- NOTE | 2018-08-06 21:08 | NUR ---
GPS-NOTES: PATIENT REFUSED TO HAVE HER BLOOD SUGAR CHECK. DESPITE EDUCATION ON RISKS AND BENEFITS. OFFERED X3, PATIENT STRONGLY REFUSED.
[2018-08-06] MEDS: ATORVASTATIN 10 MG TABLET PO SCH (21:09)
[2018-08-07] MEDS: BLOOD SUGAR DIAGNOSTIC 1 EACH STRIP IN SCH ×4 (07:55→22:01)
[2018-08-07 08:00] VITALS: BP 122/81
[2018-08-07 08:09] LABS: CREATININE 0.9 mg/dL (0.6-1.3)
[2018-08-07 08:28] LABS: CHOLESTEROL 133 mg/dL (<200); HDL CHOLESTEROL 46 mg/dL (40-60); LDL 81 mg/dL (0-99); TRIGLYCERIDES 86 mg/dL (30-150)
[2018-08-07] MEDS: risperiDONE 1 MG TABLET PO SCH ×2 (08:46→20:48)
[2018-08-07] MEDS: DIVALPROEX SODIUM 250 MG TABLET.DR PO SCH ×3 (08:47→16:07)
[2018-08-07] MEDS: BENZTROPINE MESYLATE (1 MG) 1 MG TABLET PO SCH ×2 (08:47→16:07)
[2018-08-07] MEDS: METFORMIN 500 MG TABLET PO SCH (08:47)
[2018-08-07] MEDS: LITHIUM CARBONATE 150 MG CAPSULE PO SCH ×3 (08:48→16:07)
[2018-08-07] MEDS: INSULIN REGULAR, HUMAN 100 UNIT/ML 3 ML VIAL SQ PRN (08:51)
[2018-08-07 16:02] VITALS: BP 144/70
[2018-08-07 20:02] VITALS: BP 100/62
[2018-08-07] MEDS: ATORVASTATIN 10 MG TABLET PO SCH (20:48)
--- NOTE | 2018-08-07 22:00 | NUR ---
PATIENT CONTINUES TO REFUSING THE ACCU CHECK PATIENT STATED SHE IS NOT DIABETIC, CHARGE NURSE AWARE WILL CONTINUES TO MONITOR THE PATIENT .
[2018-08-08] MEDS: BLOOD SUGAR DIAGNOSTIC 1 EACH STRIP IN SCH ×4 (07:30→21:23)
[2018-08-08 08:00] VITALS: BP 100/59
[2018-08-08] MEDS: LITHIUM CARBONATE 150 MG CAPSULE PO SCH ×3 (08:11→16:24)
[2018-08-08] MEDS: DIVALPROEX SODIUM 250 MG TABLET.DR PO SCH ×3 (08:11→21:20)
[2018-08-08] MEDS: risperiDONE 1 MG TABLET PO SCH ×2 (08:12→21:20)
[2018-08-08] MEDS: BENZTROPINE MESYLATE (1 MG) 1 MG TABLET PO SCH ×2 (08:12→16:24)
[2018-08-08] MEDS: METFORMIN 500 MG TABLET PO SCH (08:13)
--- NOTE | 2018-08-08 11:48 | NUR ---
PT. IS HIGHLY AGITATED, AGGRESSIVE, SCREAMING, YELLING AND SWINGING TO STAFFS. DR. FRANK IN THE UNIT AND SPOKE TO PT. AND CONTINUED TO SCREAM AND YELL AND ORDERED ZYPREXA 10 MG IM.
[2018-08-08] MEDS ORDERED: OLANZAPINE 10 MG VIAL IM ONE (12:00)
--- NOTE | 2018-08-08 12:30 | NUR ---
SW received a call from Gricelda, admission coordinator at [facility] Address: [address] [place] [id number] statign pt was referred from previous SNF and has been accepted to their facility.
--- NOTE | 2018-08-08 12:31 | NUR ---
DISCHARGE PLANNING: CHARLENE contacted Alf, senior placement [employer] commerce consultant [phone] who stated there are no Board and Cares available with pts low budget. She stated that there are 2 independent living homes that are in [place] that are within pts budget however are not licensed. Due to safety concerns and appropriate placement SW will speak to pt regarding her discharge to a SNF from the hospital.
--- NOTE | 2018-08-08 13:30 | NUR ---
DISCHARGE PLANNING: SW spoke with pt regarding her discharge plan. SW informed her that due to her budget SW is unable to safely place pt at a board and care. SW encouraged pt to discharge to a SNF and stay there for a couple weeks and a SW there would be able to assist with placement. Pt stated she did not want to go to a SNF because she was not old and would rather go to a homeless fdc. Pt asked SW for bus tokens so she could leave on this present day. SW informed pt that she will be discharged until she was stable and compliant with treatment.
[2018-08-08 16:00] VITALS: BP 116/74
--- NOTE | 2018-08-08 19:30 | NUR ---
GPS RN NOTE, RECEIVED PATIENT AWAKE AND IN ROOM NO S/S OR COMPLAINTS OF PAIN AT THIS TIME. PATIENT IS DISPLAYING NO S/S OF APPARENT DISTRESS AT THIS TIME. PATIENT BREATHING IS UNLABORED WITH EQUAL RISE AND FALL OF THE CHEST. PATIENT IS ONE TO ONE SITTER FOR BEING A DANGER TO OTHERS. PATIENT IS ALERT AND ORIENTED X 3 ON ROOM AIR WITH A SPO2 OF 98%. PATIENT IS MED COMPLIANT, DISORGANIZED, DEPRESSED, COOPERATIVE, AND NEEDS REORIENTATION. PATIENT DENIES SUICIDE AND HOMICIDAL IDEATIONS AT THIS TIME. PATIENT ASSISTED WITH TURNING AND REPOSITIONING Q2HR AND PRN FOR COMFORT AND CIRCULATION. PATIENT HAS NO NEEDS AT THIS TIME. PATIENT EDUCATED ON THE USE OF THE CALL KATE. PATIENT BED SIDE RAILS ARE UP X 2 FOR SAFETY, BED IS LOCKED AND LOW. WILL CONTINUE TO MONITOR AND MAINTAIN SAFETY Q15 MIN WITH THE HELP OF STAFF.
[2018-08-08 20:00] VITALS: BP 107/68
[2018-08-08] MEDS: ATORVASTATIN 10 MG TABLET PO SCH (21:20)
--- NOTE | 2018-08-08 21:23 | NUR ---
GPS RN NOTE, PATIENT REFUSED TO HAVE A ACCU CHECK PERFORMED. OFFERED TO DO ACCU CHECK THREE TIMES BUT STILL PATIENT REFUSED SCREAMING, " NO BLOOD SUGAR CHECK ". EDUCATED THIS PATIENT ON THE RISKS AND BENEFITS OF TAKING AND REFUSING ACCU CHECK. WILL CONTINUE TO MONITOR THIS PATIENT.
[2018-08-09] MEDS: BLOOD SUGAR DIAGNOSTIC 1 EACH STRIP IN SCH ×4 (07:30→21:19)
[2018-08-09 08:00] VITALS: BP 100/70
[2018-08-09] MEDS: DIVALPROEX SODIUM 250 MG TABLET.DR PO SCH ×4 (08:22→21:18)
[2018-08-09] MEDS: LITHIUM CARBONATE 150 MG CAPSULE PO SCH ×3 (08:22→16:51)
[2018-08-09] MEDS: BENZTROPINE MESYLATE (1 MG) 1 MG TABLET PO SCH ×2 (08:23→16:48)
[2018-08-09] MEDS: risperiDONE 1 MG TABLET PO SCH ×2 (08:23→21:18)
[2018-08-09] MEDS: METFORMIN 500 MG TABLET PO SCH (08:23)
[2018-08-09 16:00] VITALS: BP 102/64
--- NOTE | 2018-08-09 17:30 | NUR ---
RN NOTE: PATIENT REFUSED ACCU-CHECK DURING SHIFT. EDUCATION PROVIDED. STILL REFUSED. COMPLIANT WITH MEDICATION. MD AWARE.
--- NOTE | 2018-08-09 18:45 | NUR ---
RN NOTE: PATIENT REMAINS ALERT AWAKE ORIENTED. ON ROOM AR, NO BREATHING DISTRESS NOTED. DENIES PAIN/DISCOMFORT. DENIES SI/HI. NO NON-COMPLAINT BEHAVIOR NOTED. SAFETY MEASURES OBSERVED. ENCOURAGE TO USE CALL LIGHT FOR ASSISTANCE. CONTINUE WITH PLAN OF CARE.
[2018-08-09 20:00] VITALS: BP 111/64
[2018-08-09] MEDS: ATORVASTATIN 10 MG TABLET PO SCH (21:18)
[2018-08-10] MEDS: BLOOD SUGAR DIAGNOSTIC 1 EACH STRIP IN SCH ×4 (07:30→22:00)
[2018-08-10 08:00] VITALS: BP 103/77
[2018-08-10] MEDS: METFORMIN 500 MG TABLET PO SCH (08:58)
[2018-08-10] MEDS: risperiDONE 1 MG TABLET PO SCH ×2 (08:58→20:49)
[2018-08-10] MEDS: LITHIUM CARBONATE 150 MG CAPSULE PO SCH ×3 (08:58→17:12)
[2018-08-10] MEDS: DIVALPROEX SODIUM 250 MG TABLET.DR PO SCH ×4 (08:58→20:48)
[2018-08-10] MEDS: BENZTROPINE MESYLATE (1 MG) 1 MG TABLET PO SCH ×2 (08:58→17:12)
[2018-08-10 16:00] VITALS: BP 103/69
[2018-08-10 20:00] VITALS: BP 108/68
[2018-08-10] MEDS: ATORVASTATIN 10 MG TABLET PO SCH (21:16)
--- NOTE | 2018-08-10 22:02 | NUR ---
RN NOTES Patient took medications but refused blood sugar check. Patient denied discomfort/unusualities at this time. Snacks provided per patient request. Will continue to monitor accordingly.
[2018-08-11] MEDS: BLOOD SUGAR DIAGNOSTIC 1 EACH STRIP IN SCH ×4 (07:30→21:49)
[2018-08-11] MEDS: BENZTROPINE MESYLATE (1 MG) 1 MG TABLET PO SCH ×2 (07:53→16:29)
[2018-08-11] MEDS: risperiDONE 1 MG TABLET PO SCH ×2 (07:53→20:28)
[2018-08-11] MEDS: METFORMIN 500 MG TABLET PO SCH ×2 (07:53→16:29)
[2018-08-11] MEDS: DIVALPROEX SODIUM 250 MG TABLET.DR PO SCH ×4 (07:53→20:27)
[2018-08-11] MEDS: LITHIUM CARBONATE 150 MG CAPSULE PO SCH ×3 (07:53→16:29)
[2018-08-11 08:00] VITALS: BP 109/59
[2018-08-11 16:00] VITALS: BP 113/76
[2018-08-11 20:00] VITALS: BP 135/66
[2018-08-11] MEDS: ATORVASTATIN 10 MG TABLET PO SCH (21:47)
--- NOTE | 2018-08-11 21:49 | NUR ---
Pt medication compliant but refused BS check. Attempted x3 and explained risk and benefits. Still refused. No s/s of hypo/hyperglycemia noted. Will continue to monitor.
[2018-08-12] MEDS: BLOOD SUGAR DIAGNOSTIC 1 EACH STRIP IN SCH ×4 (07:30→21:25)
[2018-08-12 08:00] VITALS: BP 113/76
[2018-08-12] MEDS: LITHIUM CARBONATE 150 MG CAPSULE PO SCH ×3 (08:47→17:04)
[2018-08-12] MEDS: BENZTROPINE MESYLATE (1 MG) 1 MG TABLET PO SCH ×3 (08:47→17:08)
[2018-08-12] MEDS: DIVALPROEX SODIUM 250 MG TABLET.DR PO SCH ×4 (08:47→21:23)
[2018-08-12] MEDS: METFORMIN 500 MG TABLET PO SCH ×2 (08:47→17:03)
[2018-08-12] MEDS: risperiDONE 1 MG TABLET PO SCH ×2 (09:31→21:24)
[2018-08-12 16:00] VITALS: BP 125/81
--- NOTE | 2018-08-12 16:01 | NUR ---
SW contacted [facility] (homeless [facility]) Address: [address] [place] [address] and left a voicemail with Women's intake department for a warm handoff. CHARLENE will call again tomorrow.
[2018-08-12 19:48] VITALS: BP 138/68
[2018-08-12 20:00] VITALS: BP 138/68
[2018-08-12] MEDS: ATORVASTATIN 10 MG TABLET PO SCH (21:25)
--- NOTE | 2018-08-12 21:26 | NUR ---
rn gps notes patient refused accucheck despite risk and benefits explained. patient refused x 3
[2018-08-13] MEDS: BLOOD SUGAR DIAGNOSTIC 1 EACH STRIP IN SCH (07:30)
[2018-08-13 08:00] VITALS: BP 102/62
[2018-08-13] MEDS: METFORMIN 500 MG TABLET PO SCH (08:51)
[2018-08-13] MEDS: DIVALPROEX SODIUM 250 MG TABLET.DR PO SCH (08:52)
[2018-08-13] MEDS: BENZTROPINE MESYLATE (1 MG) 1 MG TABLET PO SCH (08:52)
[2018-08-13] MEDS: risperiDONE 1 MG TABLET PO SCH (08:52)
[2018-08-13] MEDS: LITHIUM CARBONATE 150 MG CAPSULE PO SCH (08:52)
--- NOTE | 2018-08-13 12:13 | NUR ---
WARM HANDOFF: CHARLENE completed and emailed to Estephania, coordinator, application for penitentiary at [facility] (homeless penitentiary) Address: [address] [facility], [place] [address] . CHARLENE received email from Estephania stating pt has been accepted to their program. Documentation can be found in pts chart.
--- NOTE | 2018-08-13 12:45 | NUR ---
ORGAN GRINDER NOTE:PATIENT ALERT ,VERBALLY RESPONSIVE ,AMBULATORY AND SELF CARE ,ORIENTED X3 ,MED COMPLIANT DENIES SUICIDAL IDEATION,DENIES HOMICIDAL IDEATION ,DENIES AUDITORY VISUAL IDEATION .SEEN BY DR MEDINA AND VIKKI MELTER SUPERVISOR WITH DISCHARGE ORDERS ,PRESCRIPTION GIVEN AND EXPLAINED TO PATIENT ABLE TO VERBALIZE UNDERSTANDING EDUCATION ABOUT ACCU CHECK AND INSULIN GIVEN AND EXPLAINED TO PATIENT ABLE TO VERBALIZE UNDERSTANDING .ALL BELONGINGS RETURNED TO PATIENT VS STABLE ,PATIENT DISCHARGE AND ESCORTED OUT BY STAFF TO BUS STATION.
--- NOTE | 2018-08-13 13:54 | NUR ---
DISCHARGE NOTE: Pt was discharged at 1:00pm via public transportation (TAP Card) to the [facility] (homeless senior care) Address: [address], [place] [address] . SW did a warm handoff with Estephania, coordinator of the Women's Department on 08/13/18 at 1030am. SW completed senior care application and was accepted by Estephania (paperwork can be found in pts chart). Pts mood was euthymic with congruent affect. Pt denied visual/auditory hallucinations and denied suicidal/homicidal ideation. Pt did not want SW to contact pts brother as she stated, "It's none of his business." Pt was provided with a homeless resource packet which includes a list of [facility] Mental Health Directly Operated Providers, [facility] Homeless Resource Directory, urgent care clinics, substance abuse walk in clinics, transitional housing resources, hot meal services, and showers. A copy of the resources given to patient as well as the homeless waiver form was placed in patients chart. Pt was alert and oriented x4 at discharge. The multidisciplinary exitcare form was done, printed, signed, and given to the patient.
== END 2018-08-13 12:50 | disposition home or self-care (01) | DRG 885 ==
LOC: ER 17:18 → GPS 18:57
PROVIDERS: ADMIT Psychiatry & Neurology Psychiatry; ATTEND Internal Medicine
DX: F25.0 Schizoaffective disorder, bipolar type (principal); F29 Unspecified psychosis not due to a substance or known physiological condition; F41.9 Anxiety disorder, unspecified; Z73.6 Limitation of activities due to disability; I10 Essential (primary) hypertension; Z79.84 Long term (current) use of oral hypoglycemic drugs; Z79.4 Long term (current) use of insulin; Z79.899 Other long term (current) drug therapy; E78.5 Hyperlipidemia, unspecified; F03.90 Unspecified dementia, unspecified severity, without behavioral disturbance, psychotic disturbance, mood disturbance, and anxiety; Z68.32 Body mass index [BMI] 32.0-32.9, adult; Z91.19 Patient's noncompliance with other medical treatment and regimen; Z91.14 Patient's other noncompliance with medication regimen; E11.65 Type 2 diabetes mellitus with hyperglycemia
CPT/HCPCS: 36415; 80048-TC; 80053-TC; 80061-TC; 80076-TC; 80164-TC; 80305; 81000-TC; 82565-TC; 82962-TC; 85025-TC; 87081-TC; G0480; J1815; J2060; J3490